=== PATIENT | female | born 1975 ===

== ENCOUNTER 2024-11-21 08:18 | Day surgery (SDC) | payer BC ==
[~2024-11-21 08:18] MED LIST: Sodium Chloride 0.9% 10 ML Syringe FLUSH PRN; Sodium Chloride 0.9% 10 ML Syringe FLUSH SCH
[2024-11-21] MEDS: Lactated Ringers 1,000 ML IV SCH (08:45)
[2024-11-21] MEDS ORDERED: propofoL 500 MG/50 ML 50 ML ONE (09:42)
[2024-11-21] MEDS ORDERED: Lidocaine 1% 4 ML ONE (09:42)
[2024-11-21] MEDS ORDERED: Midazolam 1 MG/ML 2 ML SDV ONE (09:42)
== END 2024-11-21 11:30 | disposition home or self-care (01) ==
LOC: JD.SDS 08:18
PROVIDERS: ATTEND Surgery
DX: Z12.11 Encounter for screening for malignant neoplasm of colon (principal); K57.30 Diverticulosis of large intestine without perforation or abscess without bleeding; F41.9 Anxiety disorder, unspecified; K21.9 Gastro-esophageal reflux disease without esophagitis; I10 Essential (primary) hypertension; E78.2 Mixed hyperlipidemia; E66.813 Obesity, class 3; Z68.42 Body mass index [BMI] 45.0-49.9, adult; E03.9 Hypothyroidism, unspecified; Z79.890 Hormone replacement therapy; Z79.899 Other long term (current) drug therapy; Z88.2 Allergy status to sulfonamides; Z88.8 Allergy status to other drugs, medicaments and biological substances
CPT/HCPCS: 45378; J2003; J2250; J2704; J7120; 00812